=== PATIENT | female | born 1965 | race American Indian/Alaskan Native ===

== ENCOUNTER 2018-02-21 11:19 | Outpatient (CLI) | payer OTHER ==
--- NOTE | 2018-02-21 13:18 | Ultrasound Report ---
ABDOMINAL ULTRASOUND: 02/21/18 11:19:00 CLINICAL: Abdominal pain. FINDINGS: High-resolution ultrasound demonstrates a normal size liver with normal contour. However, moderate diffuse heterogeneous increased echogenicity of the liver with small caliber portal vasculature. Normal hepatic veins and IVC. No liver mass identified. Normal gallbladder with no cholelithiasis. The gallbladder wall measures 1.4 mm. Normal bile ducts. The common bile duct measures 2.2 mm diameter. The proximal pancreas is well imaged and normal. The pancreatic tail is not imaged due to bowel gas. Normal abdominal aorta. A normal spleen measures 7.6 x 2.8 x 2.7 cm. Bilateral benign renal cysts. A right upper pole renal cyst measures 6.7 x 6.2 x 6.9 cm. A left mid pole cyst measures 2.5 x 2.0 x 1.9 cm. Normal bilateral renal echogenicity and normal non-dilated renal collecting systems and ureters. The right kidney measures 11.9 x 6.6 x 6.8 cm. The left kidney measures 11.7 x 5.6 x 4.8 cm. No renal mass or calculus. No ascites or mass. IMPRESSION: 1. Abnormal liver echogenicity suggestive of hepatic steatosis and/or cirrhosis. 2. No signs of portal hypertension. 3. No cholelithiasis. 4. No signs of pancreatitis. 5. Bilateral benign renal cysts.
== END 2018-02-21 11:20 | disposition home or self-care (01) ==
LOC: SPVWC 11:19
PROVIDERS: ATTEND Family Medicine
DX: N28.1 Cyst of kidney, acquired (principal)
CPT/HCPCS: 76700